=== PATIENT | male | born 1955 | race Hispanic/Latino ===

== ENCOUNTER 2021-11-23 07:31 | Emergency (ER) | payer OTHER ==
[~2021-11-23] VITALS: Ht 167.6 cm; Wt 99.8 kg
[2021-11-23] MEDS ORDERED: IBUPROFEN 600 MG TAB PO NR (07:43)
== END 2021-11-23 09:15 | disposition home or self-care (01) ==
LOC: ER 07:34
DX: M25.562 Pain in left knee (principal)
CPT/HCPCS: 99282